=== PATIENT | female | born 1970 | race Caucasian/White ===

== ENCOUNTER 2017-04-16 18:23 | Emergency (ER) | payer MEDICAID, OTHER ==
[~2017-04-16] VITALS: Ht 165.1 cm; Wt 81.8 kg
[2017-04-16 18:30] VITALS: Ht 165.1 cm; Wt 81.8 kg
[2017-04-16] MEDS ORDERED: KETOROLAC 30 MG INJ IM STA (19:30)
--- NOTE | 2017-04-16 20:24 | RADRPT ---
PROCEDURE: XR Foot. CLINICAL INDICATION: Trauma. TECHNIQUE: AP, lateral and oblique views of the left foot was obtained. COMPARISON: There are no similar studies submitted for comparison. FINDINGS: There is normal bone mineralization. There is no acute fracture or dislocation. No osseous erosions are identified. The joint spaces are within normal limits. There is no soft tissue swelling. IMPRESSION: No acute fracture or dislocation. RPTAT: HIKT .Isaiah Willingham MD, MD Date Time Electronically viewed and signed by .Isaiah Willingham MD, on 04/16/2017 20:24 .T/
[2017-04-16] MEDS ORDERED: NAPR-260 PO (20:55)
--- NOTE | 2017-04-16 21:20 | ERD ---
ER Documentation Chief Complaint Date/Time DATE: 04/16/17 TIME: 21:15 Chief Complaint L foot injury, R pinkie nail ripped off x a day, hx depression on meds HPI This patient is a 46-year-old female presenting to the emergency department with complaints of left foot and left great toe pain after accidentally kicking it against a table at 11 PM yesterday. Additionally the patient fell and hit her right pinky nail of her right hand against the table. The patient had no loss of consciousness or other symptoms. She currently reports severe pain in her left foot that exacerbates with walking. Symptoms are constant. She has taken no medication for relief of symptoms. No other symptoms reported currently. ROS All systems reviewed and are negative except as per history of present illness. Medications Home Meds Active Scripts Naproxen* (Naprosyn*) 500 Mg Tablet, 500 MG PO BID Y for PAIN AND/OR INFLAMMATION, #30 TAB Prov:ROSALBA LEWIS PA-C 04/16/17 Allergies Allergies: Coded Allergies: No Known Allergy (Unverified , 04/16/17) PMhx/Soc Medical and Surgical Hx: pt denies Medical Hx History of Surgery: Yes (back sx, gallbladder) Hx Alcohol Use: Yes (every 6 months) Hx Substance Use: No Hx Tobacco Use: Yes (4-5 cigars/ day) Smoking Status: Current every day smoker Physical Exam Vitals Vital Signs Date Time Temp Pulse Resp B/P Pulse Ox O2 Delivery O2 Flow Rate FiO2 04/16/17 18:30 98.4 84 18 124/80 98 Physical Exam Const: Nontoxic, well-appearing female in no acute distress. Head: Atraumatic Eyes: Normal Conjunctiva ENT: Normal External Ears, Nose and Mouth. Neck: Full range of motion..~ No meningismus. Resp: No signs of respiratory distress. Skin: No petechiae or rashes Back: No midline or flank tenderness Ext: No cyanosis, or edema. There is partial nail avulsion of the right pinky nail of the right hand. There is edema noted to the left foot with associated ecchymosis on the dorsal surface. There is swelling of the left great toe with mild ecchymosis. There is diffuse tenderness to palpation of the left foot on the dorsal surface. The patient has no tenderness palpation of the lateral or medial malleolus of the left ankle. The patient's range of motion of the left ankle is intact. Neur: Awake and alert Psych: Normal Mood and Affect Results 24 hrs Current Medications Medications (Trade) Dose Ordered Sig/Jaren Route PRN Reason Start Time Stop Time Status Last Admin Dose Admin Ketorolac Tromethamine (Toradol) 30 mg ONCE STAT IM 04/16/17 19:30 04/16/17 19:33 DC 04/16/17 19:55 Procedures/MDM 46-year-old female presents to the emergency department with complaints of left foot pain and right pinky nail avulsion: On exam: There is partial nail avulsion of the right pinky nail of the right hand. There is edema noted to the left foot with associated ecchymosis on the dorsal surface. There is swelling of the left great toe with mild ecchymosis. There is diffuse tenderness to palpation of the left foot on the dorsal surface. The patient has no tenderness palpation of the lateral or medial malleolus of the left ankle. The patient's range of motion of the left ankle is intact.X-ray of the left foot was negative for acute fracture. The patient was treated in the department with IM Toradol and is feeling improved on reevaluation. The patient was treated in the department with an orthosis you for the left foot. She is also given crutches with training. The patient agreed with the discharge plan and diagnosis. The patient is to return immediately for any new or worsening symptoms. Close follow-up with primary care physician was advised. PROCEDURE: XR Foot. CLINICAL INDICATION: Trauma. TECHNIQUE: AP, lateral and oblique views of the left foot was obtained. COMPARISON: There are no similar studies submitted for comparison. FINDINGS: There is normal bone mineralization. There is no acute fracture or dislocation. No osseous erosions are identified. The joint spaces are within normal limits. There is no soft tissue swelling. IMPRESSION: No acute fracture or dislocation. RPTAT: HIKT .Isaiah Willingham MD, MD Date Time Electronically viewed and signed by .Isaiah Willingham MD, on 04/16/2017 20:24 .T/ Departure Diagnosis: Primary Impression: Sprain of left foot Encounter type: initial encounter Qualified Code: S93.602A - Sprain of left foot, initial encounter Condition: Fair Patient Instructions: Contusion, Foot Additional Instructions: Follow up with your PCP within the next 1-3 days for a repeat evaluation. If you require a referral to a specialist, your Primary Care Provider may be able to provide this for you. In most patient cases, a referral is not required. If you have further questions regarding this matter, please ask your Primary Care Provider. Return the the emergency department immediately if symptoms worsen or change. If you have any questions regarding medications, ask your pharmacist or us before you leave. If any adverse reactions, occur while taking your medications, discontinue the treatment and return to the emergency department immediately. If any new or worsening symptoms, uncontrolled fevers, or other unexplained symptoms occur, return to the emergency department immediately. Take your medications as directed, and complete the entire course of treatment. ROSALBA LEWIS PA-C Apr 16, 2017 21:20
== END 2017-04-16 21:21 | disposition home or self-care (01) ==
LOC: FTE 18:23
DX: S61.306A Unspecified open wound of right little finger with damage to nail, initial encounter (principal); S93.602A Unspecified sprain of left foot, initial encounter; F17.210 Nicotine dependence, cigarettes, uncomplicated; W01.198A Fall on same level from slipping, tripping and stumbling with subsequent striking against other object, initial encounter; Y92.9 Unspecified place or not applicable
CPT/HCPCS: 73630; 96372; J1885; Z7502

== ENCOUNTER → 2017-08-19 | Emergency (ER) | END | disposition left against medical advice (07) ==